=== PATIENT | male | born 1950 | race Caucasian/White ===

== ENCOUNTER 2018-06-25 19:40 | Emergency (ER) | payer MEDICARE, SELFPAY ==
[2018-06-25 19:41] VITALS: BP 158/83; PULSE 69; RESP 20; TEMP 36.7; O2SAT 99; BMI 21.9
--- NOTE | 2018-06-25 20:25 | ED.VISSUMM ---
- ER Visit Summary Date of Service: 06/25/18 Chief Complaint: Heroin overdose History of Present Illness: The patient is a 67 M who has a history of heroin abuse. He was recently kicked out of his home by his girlfriend. He had not been using for some time. He broke into his room and uses heroin tonight. He was unresponsive for EMS. He was given 4mg of Narcan and he became more alert. He was nauseated and received 4 mg of Zofran ODT. Patient admits to using heroin. Denies any other ingestions or injections. He has some nausea and vomiting but denies any other associated symptoms. Denies any suicidal or homicidal thoughts. Physical Examination: Afebrile and vital signs unremarkable. Pulse ox 99% on room air. Patient is alert and oriented. Sitting comfortably. HEENT exam unremarkable. Head is atraumatic. Neck is nontender. Heart regular. Lungs clear. Abdomen soft. Skin appears unremarkable. Moves all extremities. Cranial nerves grossly intact. Test Results: None indicated Emergency Department Course and Treatment: On arrival by EMS, the patient is alert and oriented. He was placed on a monitor. He had no further altered mental status. No trouble breathing. No hypoxia. He did have some continued nausea and vomiting and received additional Zofran. We will continue to monitor. Patient will be discharged to police custody and he is going to shelter once his nausea vomiting is improved. No indication for imaging or other diagnostic testing. Treatment Plan: As above Disposition: Discharge Impression: 1. Heroin overdose This note was generated with F[employer] dictation software. It may contain incorrect words, spelling, and punctuation that were not noted in review of the chart prior to signing ED Disposition - Plan for ED Patient: Chief Complaint: Overdose Referrals: Care Physician,No Primary [Primary Care Provider] -
--- NOTE | 2018-06-25 20:28 | ED.DCSUM_ITS ---
- ER Visit Summary Date of Service: 06/25/18 Chief Complaint: Heroin overdose History of Present Illness: The patient is a 67 M who has a history of heroin abuse. He was recently kicked out of his home by his girlfriend. He had not been using for some time. He broke into his room and uses heroin tonight. He was unresponsive for EMS. He was given 4mg of Narcan and he became more alert. He was nauseated and received 4 mg of Zofran ODT. Patient admits to using heroin. Denies any other ingestions or injections. He has some nausea and vomiting but denies any other associated symptoms. Denies any suicidal or homicidal thoughts. Physical Examination: Afebrile and vital signs unremarkable. Pulse ox 99% on room air. Patient is alert and oriented. Sitting comfortably. HEENT exam unremarkable. Head is atraumatic. Neck is nontender. Heart regular. Lungs clear. Abdomen soft. Skin appears unremarkable. Moves all extremities. Cranial nerves grossly intact. Test Results: None indicated Emergency Department Course and Treatment: On arrival by EMS, the patient is alert and oriented. He was placed on a monitor. He had no further altered mental status. No trouble breathing. No hypoxia. He did have some continued nausea and vomiting and received additional Zofran. We will continue to monitor. Patient will be discharged to police custody and he is going to [facility] once his nausea vomiting is improved. No indication for imaging or other diagnostic testing. Treatment Plan: As above Disposition: Discharge Impression: 1. Heroin overdose This note was generated with [employer] dictation software. It may contain incorrect words, spelling, and punctuation that were not noted in review of the chart prior to signing ED Disposition - Plan for ED Patient: Chief Complaint: Overdose Referrals: Care Physician,No Primary [Primary Care Provider] -
--- NOTE | 2018-06-25 20:28 | ED.DEP ---
ED Disposition - Plan for ED Patient: Chief Complaint: Overdose Instructions: ED Overdose Opiate Referrals: Care Physician,No Primary [Primary Care Provider] -
[2018-06-25] MEDS: Ondansetron ODT 4 MG Tablet PO (20:41)
[2018-06-25 20:50] VITALS: BP 152/74; PULSE 63; RESP 13; O2SAT 99
--- NOTE | 2018-06-25 20:50 | ED.RN ---
pt able to remain awake. verbal order obtained for d/c. oral Zofran given prior to d/c. betsy sheridan. [phone]
--- OUTSIDE RECORDS SUMMARY | 2018-08-30 17:07 | XMS RPT_ITS ---
:1950 Author Organization [facility] Care Team Providers Name Role Phone Rachel Galeana Referring Unavailable PamfilRachel prince Primary Care Unavailable Adonis Zhao Attending Unavailable Daryl Bustos Attending Unavailable Rachel Galeana Referring Unavailable Rachel Galeana Primary Care Unavailable Manfred Baum Attending Unavailable Rachel Galeana Referring Unavailable KokifilRachel prince Primary Care Unavailable Primay Care Physicia, No Primary Care Unavailable Walter Catalan Attending Unavailable PROBLEMS PROBLEMS DATE TYPE CONDITION / CODE ATTENDING STATUS SOURCE 04/12/2018 Admitting Sprain of ligaments [facility] Diagnosis of lumbar spine, System initial encounter / Repository S33.5XXA(ICD-10) 04/12/2018 Admitting Other fall on same [facility] Diagnosis level, initial System encounter / Repository W18.39XA(ICD-10) 04/12/2018 Admitting Weakness / [facility] [employer] Diagnosis R53.1(ICD-10) System Repository 04/12/2018 Admitting Dorsalgia, [facility] Diagnosis unspecified / System M54.9(ICD-10) Repository 02/05/2018 Admitting Other psychoactive Daryl Bustos [employer] Diagnosis substance abuse, System uncomplicated / Repository F19.10(ICD-10) 02/05/2018 Admitting Alcohol abuse, Daryl [facility]ustos [facility] Diagnosis uncomplicated / System F10.10(ICD-10) Repository 02/05/2018 Admitting Contusion of left Daryl Bustos [facility] Diagnosis foot, initial System encounter / Repository S90.32XA(ICD-10) 02/05/2018 Admitting Fall same lev from Daryl Bustos [facility] Diagnosis slip/trip w/o System strike against Repository object, init / W01.0XXA(ICD-10) 02/05/2018 Admitting Unspecified Daryl Bustos [facility] Diagnosis osteoarthritis, System unspecified site / Repository M19.90(ICD-10) 02/05/2018 Admitting Unspecified injury Daryl Bustos [facility] Diagnosis of left foot, System initial encounter / Repository S99.922A(ICD-10) 09/10/2017 Admitting Pneumonitis due to [place], [employer] Diagnosis inhalation of food System and vomit / Repository J69.0(ICD-10) 09/10/2017 Admitting Poisoning by [place], [employer] [facility] Diagnosis amphetamines, System accidental Repository (unintentional), init / T43.621A(ICD-10) 09/10/2017 Admitting Poisoning by unsp [place], [employer] Diagnosis narcotics, System accidental, init / Repository T40.601A(ICD-10) 09/10/[address] 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[place], [employer] Diagnosis use of opiate System analgesic / Repository Z79.891(ICD-10) PROCEDURES PROCEDURES No Procedure Records FoundRESULTS RESULTS EMERGENCY DEPARTMENT Observed: 06/25/2018 Status: F Source: [place] SUMMARY 11:50 PM [facility] REPOSITORY [facility] Medical Records Department [address] [place] [address] Emergency Department Summary 06/25/182024 MR#: [id number] Acct: [id number] Name: GOVIND BARRIOS Rep #: [id number] : 1950 67 From: Walter Catalan MD PCP: Care Physician, No Primary Status: DEP ER - ER Visit Summary Date of Service: 06/25/18 Chief Complaint: Heroin overdose History of Present Illness: The patient is a 67 M who has a history of heroin abuse. He was recently kicked out of his home by his girlfriend. He had not been using for some time. He broke into his room and uses heroin tonight. He was unresponsive for EMS. He was given 4mg of Narcan and he became more alert. He was nauseated and received 4 mg of Zofran ODT. Patient admits to using heroin. Denies any other ingestions or injections. He has some nausea and vomiting but denies any other associated symptoms. Denies any suicidal or homicidal thoughts. Physical Examination: Afebrile and vital signs unremarkable. Pulse ox 99% on room air. Patient is alert and oriented. Sitting comfortably. HEENT exam unremarkable. Head is atraumatic. Neck is nontender. Heart regular. Lungs clear. Abdomen soft. Skin appears unremarkable. Moves all extremities. Cranial nerves grossly intact. Test Results: None indicated Emergency Department Course and Treatment: On arrival by EMS, the patient is alert and oriented. He was placed on a monitor. He had no further altered mental status. No trouble breathing. No hypoxia. He did have some continued nausea and vomiting and received additional Zofran. We will continue to monitor. Patient will be discharged to police custody and he is going to care home once his nausea vomiting is improved. No indication for imaging or other diagnostic testing. Treatment Plan: As above Disposition: Discharge Impression: 1. Heroin overdose This note was generated with 5sk[employer] software. It may contain incorrect words, spelling, and punctuation that were not noted in review of the chart prior to signing ED Disposition - Plan for ED Patient: Chief Complaint: Overdose Referrals: Care Physician,No Primary [Primary Care Provider] - What to do if you have Problems For any increased pain, shortness of breath, bleeding, nausea or vomiting, chest pain, or any unexpected problems, contact your Primary Care Provider. Call [facility] ([phone]) or report to the closest Emergency Room. Call 911 if necessary. 06/25/182348 <Electronically signed by Walter Catalan MD> Date Walter Catalan MD Cosigner Signature (If Indicated): Date CC: No Primary Care Physician DISCHARGE INSTRUCTION Observed: 06/25/2018 Status: F Source: [place] 11:49 PM [facility] REPOSITORY [facility] Medical Records Department [address] [place] [address] Discharge Instruction 06/25/182027 MR#: [id number] Acct: [id number] Name: GOVIND BARRIOS Rep #: [id number] : 1950 67 From: Walter Catalan MD PCP: Care Physician, No Primary Status: DEP ER ED Disposition - Plan for ED Patient: Chief Complaint: Overdose Instructions: ED Overdose Opiate Referrals: Care Physician,No Primary [Primary Care Provider] - What to do if you have Problems For any increased pain, shortness of breath, bleeding, nausea or vomiting, chest pain, or any unexpected problems, contact your Primary Care Provider. Call [facility] ([phone]) or report to the closest Emergency Room. Call 911 if necessary. 06/25/182348 <Electronically signed by Walter Catalan MD> Date Walter Catalan MD Cosigner Signature (If Indicated): Date CC: No Primary Care Physician CR SPINE LUMBOSACRAL 2 Observed: 04/12/2018 Status: F Source: [place] OR 3 VIEWS 4:04 PM SYSTEM REPOSITORY Patient Name: GOVIND BARRIOS Diagnostic Radiology Exam Date/Time 04/12/2018 15:42:55 EDT Exam CR Spine Lumbosacral 2 or 3 Views Ordering Physician MANFRED BISHOP Accession Number [id number] CPT4 Codes 97487 () Reason For Exam fell, injury to lumbar and coccyx area Report Examination: Lumbar spine Clinical Indication: Fall, low back pain extending to right leg Comparison: None Findings: Three views of the lumbosacral spine. Mild osteopenia. Minimal lumbar dextrocurvature, 5 degrees. Minimal rightward lateral subluxation L4 on L5. There is no gross listhesis. There is advanced multilevel loss of disc height. Endplate degenerative sclerosis and small marginal osteophytes. There is lower lumbar facet sclerosis and hypertrophy. Impression: Advanced lower lumbar spondylosis with mild scoliosis. Trace rightward lateral subluxation L4 on L5. No evidence of fracture. Report Dictated on Final Dictating Physician: MD ACEVEDO ANTHONY J Signed Date and Time: 04/12/2018 4:06 pm Signed by: MD ACEVEDO ANTHONY J Transcribed Date and Time: 04/12/2018 4:07 CR SACRUM/COCCYX 2+ VIEWS Observed: 04/12/2018 Status: F Source: [place] 4:03 PM SYSTEM REPOSITORY Patient Name: GOVIND BARRIOS Diagnostic Radiology Exam Date/Time 04/12/2018 15:43:06 EDT Exam CR Sacrum/Coccyx 2+ Views Ordering Physician MANFRED BISHOP Accession Number [id number] CPT4 Codes 90234 () Reason For Exam fall injury to low back and coccyx Report Examination: Sacrococcyx Clinical Indication: Pain Comparison: None Findings: Two AP and a lateral view of the sacrococcyx demonstrates no gross evidence of fracture or subluxation. There is no widening of the synchondroses. Spondylosis lower lumbar spine. Impression: No evidence of fracture, subluxation, or gross osseous abnormality of the sacrum and coccyx. Report Dictated on Final Dictating Physician: MD ACEVEDO ANTHONY J Signed Date and Time: 04/12/2018 4:03 pm Signed by: MD ACEVEDO ANTHONY J Transcribed Date and Time: 04/12/2018 4:05 HEMOGRAM W/ AUTODIFF Collected: 04/12/2018 Status: F Source: [place] 3:29 PM SYSTEM REPOSITORY TYPE CODE TESTS RESULT OUT OF REFERENCE UNITS RANGE LAB IWBC 3.6-10.7 10*3/uL WBC High 15.1 LAB RBC 4.40-5.90 10*6/uL Low RBC 4.23 LAB HGB 13.0-18.0 g/dL Low Hemoglobin 11.9 LAB HCT 40.0-52.0 % Low Hematocrit 35.9 LAB MCV 80.0-98.0 fL MCV Normal 84.8 LAB MCH 26.0-34.0 pg MCH Normal 28.1 LAB MCHC 32.0-36.0 % MCHC Normal 33.1 LAB RDW 11.5-14.5 % RDW High 17.4 LAB PLT 140-440 10*3/uL Platelet High 451 LAB MPV 7.4-10.4 fL Low MPV 7.0 LAB GRAN% 40.0-80.0 % Granulocytes Normal 70.6 LAB LYMP% 20.0-40.0 % Low Lymphocytes 16.9 LAB MONO% 2.0-10.0 % Monocytes High 10.1 LAB EOS% 1.0-6.0 % Eosinophils Normal 1.7 LAB BAS% 0.0-2.0 % Basophils Normal 0.7 LAB ANC 1.8-7.0 10*3/uL Abs High Neutrophile Cnt 10.6 LAB ALC 1.0-4.3 10*3/uL Abs Lymph Cnt Normal 2.5 LAB AMC 0.0-0.8 10*3/uL Abs Monocyte High Cnt 1.5 LAB AEC 0.0-0.5 10*3/uL Abs Eosin Cnt Normal 0.3 LAB ABC 0.0-0.2 10*3/uL Abs Baso Cnt Normal 0.1 Performed By: #### HEMDF, CRP2, ESR #### [facility] [address] [place] [address] C-REACTIVE PROTEIN Collected: 04/12/2018 Status: F Source: [place] 3:29 PM SYSTEM REPOSITORY TYPE CODE TESTS RESULT OUT OF REFERENCE UNITS RANGE LAB 2CRP 0.0-6.0 mg/L High C-Reactive 33.9 Protein Result Comment: . Performed By: #### HEMDF, CRP2, ESR #### [facility] [address] [place] [address] SED RATE Collected: 04/12/2018 Status: F Source: [place] 3:29 PM SYSTEM REPOSITORY TYPE CODE TESTS RESULT OUT OF RANGE REFERENCE UNITS LAB ESR 0-10 mm/h High Sed Rate 30 Performed By: #### HEMDF, CRP2, ESR #### [facility] [address] [place] [address] CR FOOT COMPLETE 3+ Observed: 02/05/2018 Status: F Source: [place] VIEWS LEFT 8:47 AM SYSTEM REPOSITORY Patient Name: GOVIND BARRIOS Diagnostic Radiology Exam Date/Time 02/05/2018 08:23:21 EDT Exam CR Foot Complete 3+ Views Left Ordering Physician DARYL BUSTOS Accession Number [id number] CPT4 Codes 66861 () Reason For Exam trauma Report Clinical indications: Left great toe pain FINDINGS: Three views are submitted for interpretation. There are no prior studies for comparison. Bone mineralization is normal. No acute fracture, dislocation or subluxation is appreciated. The surrounding soft tissues are intact. There is no evidence of radiopaque foreign body or gas formation. There is no evidence of joint effusion. There is some minimal cystic degenerative change in the first metatarsal head and slight narrowing of the MTP joint.. IMPRESSION: No acute osseous abnormality of the left foot. Minimal degenerative changes as noted above. Report Dictated on Final Dictating Physician: MD GIRARD RUSSELL Signed Date and Time: 02/05/2018 8:48 am Signed by: MD GIRARD RUSSELL Transcribed Date and Time: 02/05/2018 8:49 CR CHEST PORTABLE Observed: 09/09/2017 Status: F [facility] Patient Name: GOVIND BARRIOS Diagnostic Radiology Exam Date/Time 09/09/2017 21:40:00 EDT Exam CR Chest Portable Ordering Physician LEVON ALLEN Accession Number [id number] CPT4 Codes 02974 () Reason For Exam SOB Report PORTABLE CHEST Clinical indication: SOB Comparison: 10/08/2014. The cardiac silhouette and mediastinal contours are not enlarged. Consolidation is present in the left lung base and there is also patchy infiltrate right fairly hilar region and right base consistent with pneumonia. No pleural effusions are noted. IMPRESSION: Bilateral basilar infiltrates, left worse than right consistent with pneumonia. With the patient's history, aspiration pneumonia is a strong consideration. Report Dictated on Final Dictating Physician: MD MÉNDEZ DIANE Signed Date and Time: 09/09/2017 10:19 pm Signed by: MD MÉNDEZ DIANE Transcribed Date and Time: 09/09/2017 10:20 ALLERGIES ALLERGIES DATE TYPE / CODE NAME / CODE REACTION SEVERITY SOURCE 06/25/2018 Drug No Known Unknown [facility] Allergy/4160 Allergies/F00 [facility] 56173(SNOMED 1904755(RXNOR Repository CT) M) ENCOUNTERS ENCOUNTERS ADMIT/DISCHARGE ACCOUNT NUMBER ADMITTING ENCOUNTER LOCATION SOURCE CLASS 06/25/2018/06/25/19 [id number] Emergency [facility]a [facility]a [facility] ding:ED Repository 04/12/2018 [id number] Emergency [facility] EDRoom: System [id number]: Repository [id number] 02/05/2018 [id number] Emergency [facility] EDRoom: System [id number]: Repository [id number] 09/10/2017 [id number] Inpatient [facility] Encounter 2ERoom: System [id number]: Repository [id number] PAYERS PAYERS ENCOUNTER GUARANTOR PAYER SUBSCRIBER SOURCE 06/25/2018 GOVIND LAI Primary [facility]IND Sid[facility] [place]: [place] , [place] [address]Mud: *IN [facility] [id number] Hospital Number: Repository () [id number] Date:[id number] ASHOK OREILLY [id number]: 06/25/2018 Secondary NOT GIVENUNK [place] Insurance:SELF PAY [facility] Number: Effective Repository Date:2018-06-25 04/12/2018 [facility]ind L [facility]MedicarePol [place]DOB: System icy Number: Effective [id number] Repository [place] Date:2017-12-08 , [place] [address]Hgh: () 04/12/2018 Secondary Govind L [facility] Insurance:MedicarePol NormanDOB: System icy Number: Effective [id number] Repository Date:2017-12-08 04/12/2018 Tertiary Govind L [facility] Insurance:MedicaidPol NormanDOB: System icy Number: Effective [id number] Repository Date: 02/05/2018 Govind L Primary [facility] Insurance:MedicarePol [place]DOB: System icy Number: Effective [id number] Repository [place] Date:2017-12-08 , [place] [address]Gce: () 02/05/2018 Secondary Govind L [facility] Insurance:MedicarePol NormanDOB: System icy Number: Effective [id number] Repository Date:2017-12-08 02/05/2018 Tertiary Govind L [facility] Insurance:MedicaidPol NormanDOB: System icy Number: Effective [id number] Repository Date: 09/10/2017 Govind L Primary [facility] Insurance:[employer] NormanDOB: System cy Number: Effective [id number] Repository [place] Date: , [place] [address]Als: ()
== END 2018-06-25 20:54 | disposition home or self-care (01) ==
PROVIDERS: Emergency Provider Emergency Medicine
DX: T40.1X1A Poisoning by heroin, accidental (unintentional), initial encounter (principal); R11.2 Nausea with vomiting, unspecified; Y92.9 Unspecified place or not applicable; Z87.01 Personal history of pneumonia (recurrent); Z86.19 Personal history of other infectious and parasitic diseases; Z87.891 Personal history of nicotine dependence
CPT/HCPCS: 99284

== ENCOUNTER 2019-03-29 12:29 | Emergency (ER) | payer MEDICARE, SELFPAY ==
[2019-03-29 12:30] VITALS: BP 126/69; PULSE 73; RESP 24; TEMP 36.9; O2SAT 99; BMI 18.8
--- NOTE | 2019-03-29 13:05 | RAD_ITS ---
STUDY: X-RAY - RIGHT RADIUS AND ULNA REASON FOR EXAM: Male, 68 years old. Right forearm pain TECHNIQUE: 2 view(s) of the forearm. COMPARISON: None. FINDINGS: There is no demonstrated soft tissue swelling. Normal visualized radius. Normal visualized ulna. RAD/Forearm 2 Views IMPRESSION: Normal x-ray examination of the radius and ulna. Electronically Signed: Chema Godoy MD ([place]) at 13:39 EDT , Service support ,
[2019-03-29 13:13] LABS: Absolute Lymphocyte Count 1.98 X10^3/uL (0.83-4.51); Absolute Neutrophil Count 4.9 X10^3/uL (2.0-7.7); Basophil# 0.09 X10^3/uL; Basophil% 1.2 % (0-1); Eosinophil# 0.17 X10^3/uL; Eosinophils% 2.2 % (0-5); Hematocrit 38.9 % (40-54); Hemoglobin 12.7 g/dL (13.0-16.5); Lymphocyte # 1.98 X10^3/ul (4.0); Lymphocyte % 25.5 % (19-41); Mean Corp Hgb Conc 32.6 g/dL (32-36); Mean Corpuscular Hgb 27.5 pg (27.0-32.0); Mean Corpuscular Volume 84.4 fL (80-94); Mean Platelet Vol. 8.7 fl (6.2-12.0); Monocyte# 0.61 X10^3/uL; Monocyte% 7.9 % (0-10); NRBC Flagged by Analyzer 0 % (0-5); Neutrophil # 4.86 X10^3/uL (2.7-7.7); Neutrophil % 62.6 % (47-70); Platelet Count 452 K/mm3 (150-450); RBC Distribution Width CV 16.3 % (11.6-14.6); RBC Distribution Width SD 50.2 fl (35.1-43.9); Red Blood Count 4.61 M/mm3 (4.6-6.2); White Blood Count 7.8 K/mm3 (4.4-11.0)
[2019-03-29 13:23] LABS: Anion Gap 7 (5-15); BUN 29 mg/dL (7-18); BUN/Creat Ratio 33.4 RATIO (10-20); Calcium,Total 8.9 mg/dL (8.5-10.1); Chloride 107 mmol/L (98-107); Creatinine, Serum 0.87 mg/dL (0.70-1.30); EST Glomerular Filtration Rate 94 mL/min (>60); Est Glom Filt Rate - Afr Amer 113 mL/min (>60); Glucose 78 mg/dL (74-106); Potassium 4.4 mmol/L (3.5-5.1); Sodium Level 139 mmol/L (136-145)
--- NOTE | 2019-03-29 15:00 | ED.VISSUMM ---
- ER Visit Summary Date of Service: 03/29/19 Chief Complaint: Skin infection History of Present Illness: The patient is a 68 M with a history of IV drug abuse. The patient injected in his right mid forearm. He has a wound to the area. Denies fever or systemic symptoms. Physical Examination: Right mid forearm shows an ulceration with induration. No active pus or bleeding. Neurovascular intact distally. Test Results: Labs were unremarkable. Cultures are pending. Forearm x-rays were normal. Emergency Department Course and Treatment: Patient has an open ulcer. There is no active drainage or bleeding. Nothing to incise. He will be treated with Bactrim and Keflex. Referred to plastic surgery for follow-up. Return for any new or worsening issues. Treatment Plan: As above Disposition: Discharge Impression: 1. Right forearm ulceration 2. Right forearm cellulitis This note was generated with [employer] dictation software. It may contain incorrect words, spelling, and punctuation that were not noted in review of the chart prior to signing ED Disposition - Plan for ED Patient: Referrals: Care Physician,No Primary [Primary Care Provider] -
--- NOTE | 2019-03-29 15:02 | ED.DEP ---
ED Disposition - Plan for ED Patient: Instructions: MRSA SKIN INFECTION, Suspected or Confirmed Prescriptions: Smz/Tmp Ds [Bactrim Ds] 1 tab PO BID #20 tab Prescription Printed Cephalexin [Keflex] 500 mg PO Q6 #40 cap Prescription Printed Naproxen [Naprosyn] 500 mg PO BID #14 tab Prescription Printed Referrals: Dioni Anand MD [STAFF PHYSICIAN] -
[2019-03-29] MEDS: Cephalexin 250 MG Capsule 500 MG PO (15:04)
[2019-03-29] MEDS: Naproxen 500 MG Tablet PO (15:04)
[2019-03-29] MEDS: Smz/Tmp Ds Tablet 1 TABLET PO (15:04)
[2019-03-29 15:05] VITALS: BP 154/70; PULSE 68; RESP 17; TEMP 36.7; O2SAT 97
== END 2019-03-29 15:16 | disposition home or self-care (01) ==
PROVIDERS: Emergency Provider Emergency Medicine
DX: L03.113 Cellulitis of right upper limb (principal); L98.499 Non-pressure chronic ulcer of skin of other sites with unspecified severity
CPT/HCPCS: 73090; 80048; 85025; 87040; 87070; 87205; 99284; A4216

== ENCOUNTER 2022-02-01 02:27 | Emergency (ER) | payer MEDICARE, MEDICAID, SELFPAY ==
[2022-02-01 02:27] VITALS: BP 127/87; PULSE 91; RESP 18; TEMP 36.2; O2SAT 93; BMI 19.9
--- NOTE | 2022-02-01 02:39 | RAD_ITS ---
STUDY: X-RAY - PELVIS AND RIGHT HIP REASON FOR EXAM: Male, 71 years old. fall TECHNIQUE: 3 views of the pelvis and hip. COMPARISON: None. FINDINGS: There is a non-specific bowel gas pattern. Normal visualized soft tissue structures. Normal bilateral iliac wings, sacroiliac joints and visualized sacrum. Normal bilateral superior and inferior pubic rami. Normal pubic symphysis. Normal bilateral ischial tuberosities. Normal visualized femoral head. Normal acetabulum. Normal hip joint. Degenerative changes of the lower lumbar spine. RAD/HIP, UNI W/ Pelvis 2-3 Views IMPRESSION: No acute findings in the pelvis or right hip. Electronically Signed: Fadi Clarke MD at 3:07 EDT Reading Location ID and State: [id number] / , Service support ,
--- NOTE | 2022-02-01 02:44 | EDS_ITS ---
HPI History of Present Illness Chief Complaint: Fall Detail of Chief Complaint: Right hip pain Informant: patient Onset/Context/Timing Onset: Today Current Severity: Mild Maximum Severity: Moderate Narrative Narrative: Patient present secondary to right hip pain. Patient states that he fell on wet grass landing on his right hip. He states he was hospitalized 2 weeks ago at [facility] secondary to a right hip fracture. He did not require surgery. He is concerned that he he reinjured his hip. I did review records through [facility]. Patient had a fracture of the greater trochanter. He was also hospitalized with COVID and a forearm abscess at that time. [facility] Medical History Arthritis Greater trochanter fracture Home Medications cephalexin 500 mg capsule 500 mg PO Q6 #40 caps 03/29/19 [Rx Last Taken Unknown] naproxen 500 mg tablet 500 mg PO BID #14 tabs 03/29/19 [Rx Last Taken Unknown] sulfamethoxazole 800 mg-trimethoprim 160 mg tablet 1 tab PO BID #20 tabs 03/29/19 [Rx Last Taken Unknown] Allergy/AdvReac Type Severity Reaction Status Date / Time No Known Allergies Allergy Verified 03/29/19 12:30 Social History Smoking Status: Current every day smoker tobacco type: cigarettes ROS ROS ED Constitutional Constitutional ED: Denies chills or fever(s) Eyes Eyes: Denies change in vision or discharge from eye(s) ENT ENT ED: Denies discharge from eye(s), rhinorrhea or sore throat Cardiovascular Cardiovascular: Denies chest pain or palpitations Respiratory/Chest Respiratory/Chest: Denies cough or dyspnea Gastrointestinal Gastrointestinal: Denies abdominal pain, diarrhea, nausea or vomiting Genitourinary Genitourinary ED: Denies difficulty urinating or dysuria Musculoskeletal Musculoskeletal: Reports extremity pain; Denies back pain Integumentary Denies Abrasions or rash Neurologic Neurologic: Denies headache(s) or weakness Psychiatric Psychiatric: Denies anxiety or depression Allergic/Immunologic Allergic/Immunologic ED: Denies lip swelling or urticaria EXAM Physical Exam Const Vital Signs: 02/01/22 02:27 Temperature 97.2 F L Temperature Source Temporal Pulse Rate 91 Respiratory Rate 18 Blood Pressure 127/87 H Blood Pressure Mean 100 Pulse Ox 93 Oxygen Delivery Method Room Air Positive well nourished and well developed General Appearance ED: well developed HEENT Reports normocephalic and head/scalp atraumatic Eyes PERRL and EOMs intact bilaterally Neck supple Chest Wall inspection of chest normal and palpation of chest normal Resp normal respiratory effort and clear to auscultation bilaterally Cardio regular rate and regular rhythm GI normal to inspection, nondistended, normoactive bowel sounds Palpation: soft Extremity Extremity Narrative: Mild tenderness of patient over the greater trochanter of the right hip. No pain with logroll. No calf tenderness. Strong distal pulses. Neuro oriented x3 and no sensory deficits noted Sensorium / Orientation: alert Motor Exam: strength 5/5 throughout Psych mental status grossly normal Skin no rashes or lesions noted MDM MDM MDM Narrative Medical decision making narrative: Patient given naproxen for pain. Right hip x-rays obtained. Radiography Diagnostic Testing: Clinical Impression(s) from Imaging Studies Hip/Pelvis X-Ray 02/01/22 02:39 IMPRESSION: No acute findings in the pelvis or right hip. Electronically Signed: Fadi Clarke MD at 3:07 EDT Reading Location ID and State: [id number] / , Service support , Treatment and Re-Evaluation Narrative: Right hip x-ray per my interpretation reveals what I believed to be a faint line from his recent greater trochanter fracture. It is nondisplaced. Radiology reviewed the films and does not appreciate an acute fracture. Regardless if he does still have a healing fracture it is not displaced and no further treatment is needed other than pain control. Patient is reassured with these findings. Discharge Plan Triage Chief Complaint: Fall ED Provider: Rachel Myles Dx/Rx/DC Orders Clinical Impression: Fall, Contusion of right hip Instructions: ED Hip Contusion Prescriptions: No Action sulfamethoxazole-trimethoprim 1 TABLET tablet 1 tab PO BID Qty: 20 0RF cephalexin 500 MG capsule 500 mg PO Q6 Qty: 40 0RF naproxen 500 MG tablet 500 mg PO BID Qty: 14 0RF Primary Care Provider: Care Physician,No Primary Referrals: Care Physician,No Primary [Primary Care Provider] - Disposition Disposition: Home, Self Care
[2022-02-01] MEDS: Naproxen 500 MG Tablet PO (02:47)
[2022-02-01 03:32] VITALS: BP 127/87; PULSE 91; RESP 15; O2SAT 93
== END 2022-02-01 03:32 | disposition home or self-care (01) ==
PROVIDERS: Emergency Provider Emergency Medicine; Visit Provider Emergency Medicine
DX: S70.01XA Contusion of right hip, initial encounter (principal); W01.0XXA Fall on same level from slipping, tripping and stumbling without subsequent striking against object, initial encounter; F17.210 Nicotine dependence, cigarettes, uncomplicated
CPT/HCPCS: 73502; 99282